=== PATIENT | male | born 1975 | race Two or more races ===

== ENCOUNTER 2019-07-21 07:35 | Day surgery (SDC) | payer OTHER ==
[~2019-07-21 07:35] MED LIST: ALTACE5 MG PO; FENOFIBRATE PO; TIROSINT75 MCG PO
[2019-07-21] MEDS ORDERED: PERCOCET 5-3251 EACH PO (10:26)
[2019-07-21] MEDS ORDERED: COLACE100 MG PO (10:26)
== END 2019-07-21 15:50 | disposition home or self-care (01) ==
LOC: CIR.AMB 07:35
DX: K60.3 Anal fistula (principal)